=== PATIENT | male | born 1995 | race Two or more races ===

== ENCOUNTER → 2024-05-13 | Emergency (ER) | payer BC ==
[~2024-05-13] VITALS: Ht 170.2 cm; Wt 104.3 kg
[~2024-05-13] MED LIST: BENADRYL ALLERG50 MG PO; CEFTRIAXONE SODIUM 1,000 MG VIAL IM ONE; HYDROCORTISONE 2.5% 20 GM TUBE TOP ONE; KETOROLAC TROMETHAMINE 60 MG VIAL IM ONE; MEDROLPACK PO; TETANUS & DIPHTHERIA TOX,ADULT 0.5 ML VIAL IM ONE
== END | disposition home or self-care (01) ==
LOC: ER 17:54
DX: R60.0 Localized edema (principal); T63.94XA Toxic effect of contact with unspecified venomous animal, undetermined, initial encounter; Y92.832 Beach as the place of occurrence of the external cause
CPT/HCPCS: 73630; 90471; 90714; J1670